=== PATIENT | male | born 1990 | race Caucasian/White ===

== ENCOUNTER 2018-10-27 18:42 | Emergency (ER) | payer OTHER ==
[~2018-10-27] VITALS: Ht 180.3 cm; Wt 156.5 kg
[2018-10-27] MEDS ORDERED: NOVOLOG100 UNIT/1 SUBQ (18:48)
[2018-10-27] MEDS ORDERED: TRULICITY0.75 MG/0. INJECTION (18:48)
[2018-10-27] MEDS ORDERED: LANTUS100 UNIT/M SUBQ (18:49)
[2018-10-27] MEDS ORDERED: DOXYCYCLINE 10100 MG PO (19:23)
[2018-10-27] MEDS ORDERED: PREDNISONE 20 M20 MG PO (19:23)
[2018-10-27 19:30] VITALS: BP 126/85
== END 2018-10-27 19:48 | disposition home or self-care (01) ==
LOC: ER 18:42
DX: T36.95XA Adverse effect of unspecified systemic antibiotic, initial encounter (principal); L03.311 Cellulitis of abdominal wall; E11.9 Type 2 diabetes mellitus without complications; Z79.4 Long term (current) use of insulin; Z79.84 Long term (current) use of oral hypoglycemic drugs; Y92.89 Other specified places as the place of occurrence of the external cause

== ENCOUNTER 2018-11-16 15:14 | Emergency (ER) | payer OTHER ==
[~2018-11-16] VITALS: Ht 172.7 cm; Wt 104.3 kg
[~2018-11-16 15:14] MED LIST: DOXYCYCLINE 10100 MG PO; LANTUS100 UNIT/M SUBQ; NOVOLOG100 UNIT/1 SUBQ; PREDNISONE 20 M20 MG PO; TRULICITY0.75 MG/0. INJECTION
[2018-11-16 15:15] VITALS: BP 121/82
[2018-11-16] MEDS ORDERED: AUGMENTIN 875-1 EACH PO (16:32)
== END 2018-11-16 16:44 | disposition home or self-care (01) ==
LOC: ER 15:14
DX: S70.312A Abrasion, left thigh, initial encounter (principal); W55.03XA Scratched by cat, initial encounter; Y93.89 Activity, other specified; Y92.89 Other specified places as the place of occurrence of the external cause; Y99.8 Other external cause status; E11.9 Type 2 diabetes mellitus without complications